=== PATIENT | male | born 1955 | race Caucasian/White ===

== ENCOUNTER 2018-09-05 06:48 | Inpatient (IN) | payer OTHER ==
[~2018-09-05 06:48] MED LIST: BUPIVACAINE 0.5% (SDV) 30 ML, morphine SULFATE (PF) 8 MG, EPINEPHrine 0.3 MG, KETOROLAC... IRR
[2018-09-05] MEDS ORDERED: PROPOFOL 20 ML (07:54)
[2018-09-05] MEDS ORDERED: LIDOCAINE 2% (SDV) 5 ML INJ (07:54)
[2018-09-05] MEDS ORDERED: SUCCINYLCHOLINE CHLORIDE 100 MG/5 ML SYG IV (07:54)
[2018-09-05] MEDS ORDERED: CEFAZOLIN 1 GM INJ (07:54)
[2018-09-05] MEDS ORDERED: TRANEXAMIC ACID 1GM/100ML(PMX) 100 ML (07:54)
[2018-09-05] MEDS ORDERED: ROCURONIUM 50 MG INJ (07:54)
[2018-09-05] MEDS ORDERED: ROPIVACAINE 0.5 % 30 ML VIAL (07:55)
[2018-09-05] MEDS: DEXAMETHASONE 1 MG TAB PO (08:18)
[2018-09-05] MEDS: GABAPENTIN 300 MG CAP PO ×2 (08:19→20:18)
[2018-09-05] MEDS: VANCOMYCIN 1 GM (PMX) 250 ML IVPB (08:21)
[2018-09-05] MEDS ORDERED: MIDAZOLAM 1 MG/ML 2 ML INJ (10:07)
[2018-09-05] MEDS: TRANEXAMIC ACID 1GM/100ML(PMX) 100 ML IVPB ×2 (10:45→12:50)
[2018-09-05] MEDS ORDERED: PHENYLephrine (100 MCG/ML) 10ML SYG (11:26)
[2018-09-05] MEDS ORDERED: EPHEDrine 25 MG/5 ML SYG (11:35)
[2018-09-05] MEDS ORDERED: GLYCOPYRROLATE 0.4 MG INJ (11:36)
[2018-09-05] MEDS ORDERED: NEOSTIGMINE 3 MG/3 ML SYRINGE (11:36)
[2018-09-05] MEDS ORDERED: ALBUTEROL/IPRATROPIUM (NEB) 3 ML AMP INH (12:00)
[2018-09-05] MEDS ORDERED: EPHEDrine 25 MG/5 ML SYG IV (12:00)
[2018-09-05] MEDS ORDERED: NACL 0.9% 3 ML SYG IV (12:00)
[2018-09-05] MEDS ORDERED: FENTAnyl 50 MCG/ML VIAL IV ×3 (12:00)
[2018-09-05] MEDS ORDERED: MIDAZOLAM 1 MG/ML 2 ML INJ IV (12:00)
[2018-09-05] MEDS ORDERED: OXYCODONE/ACETAMINOPHEN (5/325) TAB PO ×2 (12:00)
[2018-09-05] MEDS ORDERED: oxyCODONE 5 MG TAB PO (12:00)
[2018-09-05] MEDS ORDERED: ZOLPIDEM 5 MG TAB PO (12:00)
[2018-09-05] MEDS ORDERED: METOCLOPRAMIDE 10 MG INJ IV (12:00)
[2018-09-05] MEDS ORDERED: LABETALOL HCL 20MG INJ IV (12:00)
[2018-09-05] MEDS ORDERED: hydrALAzine 20 MG INJ IV (12:00)
[2018-09-05] MEDS ORDERED: LOPERAMIDE 2 MG CAP PO (12:00)
[2018-09-05] MEDS ORDERED: traZODone 100 MG TAB PO (12:00)
[2018-09-05] MEDS ORDERED: ONDANSETRON 4 MG INJ IV ×2 (12:00)
[2018-09-05] MEDS ORDERED: HYDROmorphONE 1 MG/5 ML IV SYRINGE IV ×3 (12:00)
[2018-09-05] MEDS ORDERED: MAGNESIUM HYDROXIDE 30ML CUP PO (12:00)
[2018-09-05] MEDS ORDERED: ALBUTEROL HFA 8 GM INHALER INH (12:00)
[2018-09-05] MEDS ORDERED: MEPERIDINE 25 MG INJ IV (12:00)
[2018-09-05] MEDS ORDERED: DIPHENHYDRAMINE 50 MG INJ IV ×2 (12:00)
[2018-09-05] MEDS: ACETAMINOPHEN 500 MG TAB PO ×2 (12:57→17:41)
[2018-09-05] MEDS: DEXAMETHASONE 2 MG TAB PO ×2 (12:59→17:41)
[2018-09-05] MEDS ORDERED: NON-FORMULARY/PATIENT OWN MED (Albuterol/Ipratropium* (Combivent Respimat*) 2 PUFF) INHALATION (13:00)
[2018-09-05] MEDS: LACTATED RINGER'S 1,000 ML IV (17:13)
[2018-09-05] MEDS: metFORMIN 500 MG TAB PO (17:42)
[2018-09-05] MEDS: KETOROLAC 15 MG INJ IV (20:13)
[2018-09-05] MEDS: SENNA/DOCUSATE NA (8.6MG/50MG) TAB PO (20:15)
[2018-09-05] MEDS: ATORVASTATIN 10 MG TAB PO (20:16)
[2018-09-05] MEDS: METOPROLOL 50 MG TAB PO (20:17)
[2018-09-05] MEDS: MOMETASONE 0.24 GM INHALER INH (20:26)
[2018-09-05] MEDS: VANCOMYCIN 500 MG (PMX) 100 ML IVPB (21:28)
[2018-09-05] MEDS: oxyCODONE 5 MG TAB PO (21:34)
[2018-09-06] MEDS: ACETAMINOPHEN 500 MG TAB PO ×2 (00:01→06:11)
[2018-09-06] MEDS: HYDROmorphONE 1 MG/ML SYG IV (00:08)
[2018-09-06] MEDS: oxyCODONE 5 MG TAB PO ×2 (05:10→09:10)
[2018-09-06] MEDS: DEXAMETHASONE 2 MG TAB PO ×2 (06:12)
[2018-09-06] MEDS: metFORMIN 500 MG TAB PO (08:47)
[2018-09-06] MEDS ORDERED: NON-FORMULARY/PATIENT OWN MED (Fluticasone/Umeclidin/Vilanter (Trelegy Ellipta 100-62.5-25 IH (09:00)
[2018-09-06] MEDS: SENNA/DOCUSATE NA (8.6MG/50MG) TAB PO (09:00)
[2018-09-06] MEDS: FUROSEMIDE 20 MG TAB PO (09:00)
[2018-09-06] MEDS: ARIPIPRAZOLE 5 MG TAB PO (09:07)
[2018-09-06] MEDS: ESCITALOPRAM 10 MG TAB PO (09:07)
[2018-09-06] MEDS: METOPROLOL 50 MG TAB PO (09:09)
[2018-09-06] MEDS: ENALAPRIL 10 MG TAB PO (09:09)
[2018-09-06] MEDS: VANCOMYCIN 500 MG (PMX) 100 ML IVPB (09:10)
[2018-09-06] MEDS: MOMETASONE 0.24 GM INHALER INH (09:13)
[2018-09-06] MEDS: LACTATED RINGER'S 1,000 ML IV (09:30)
[2018-09-06] MEDS ORDERED: DIGOXIN 0.25 MG TAB PO (13:00)
== END 2018-09-06 12:15 | disposition home or self-care (01) | DRG 483 ==
LOC: REC 06:48 → MS1 13:18
PROVIDERS: Orthopaedic Surgery
PROC: 0RRJ00Z Replacement of Right Shoulder Joint with Reverse Ball and Socket Synthetic Substitute, Open Approach (ICD-10-PCS; principal; 2018-09-05 09:30)
DX: T84.028A Dislocation of other internal joint prosthesis, initial encounter (principal); E11.9 Type 2 diabetes mellitus without complications; M19.111 Post-traumatic osteoarthritis, right shoulder; M19.011 Primary osteoarthritis, right shoulder; Z96.611 Presence of right artificial shoulder joint; T14.90XS Injury, unspecified, sequela; I10 Essential (primary) hypertension; E78.5 Hyperlipidemia, unspecified; J44.9 Chronic obstructive pulmonary disease, unspecified; J45.909 Unspecified asthma, uncomplicated; F31.9 Bipolar disorder, unspecified; Y84.8 Other medical procedures as the cause of abnormal reaction of the patient, or of later complication, without mention of misadventure at the time of the procedure; Y92.019 Unspecified place in single-family (private) house as the place of occurrence of the external cause; X58.XXXS Exposure to other specified factors, sequela; Z79.82 Long term (current) use of aspirin; Z79.84 Long term (current) use of oral hypoglycemic drugs
CPT/HCPCS: 73030-RT; 82962; 86999; 88300; 97162